=== PATIENT | male | born 1960 | race African-American/Black ===

== ENCOUNTER 2020-04-17 00:40 | Emergency (ER) | payer SELFPAY ==
[~2020-04-17] VITALS: Ht 182.9 cm; Wt 69.0 kg
[2020-04-17 00:43] VITALS: BP 120/81
== END 2020-04-17 01:23 | disposition home or self-care (01) ==
LOC: ED 01:00
DX: S00.83XA Contusion of other part of head, initial encounter (principal); Y04.2XXA Assault by strike against or bumped into by another person, initial encounter; Y93.89 Activity, other specified; Y92.89 Other specified places as the place of occurrence of the external cause; Y99.8 Other external cause status
CPT/HCPCS: 99281